=== PATIENT | female | born 2000 | race Two or more races ===

== ENCOUNTER 2024-12-22 03:57 | Emergency (ER) | payer BC, MEDICAID, SELFPAY ==
[2024-12-22 03:58] VITALS: BMI 39.0
[2024-12-22 04:07] VITALS: BP 127/88; PULSE 87; RESP 18; TEMP 36.8; O2SAT 97
--- NOTE | 2024-12-22 04:31 | PD.EDRME ---
Rapid Medical Screening Exam PENDING SALE TO [facility] Arrival date/time: 12/22/24 03:57 24F with history of hypothyroidism presents to ED with 1 week of bilateral flank pain and dysuria. Chief Complaint: Back Pain/Injury Vital signs: Vital Signs Temperature 98.2 F 12/22/24 04:07 Pulse Rate 87 12/22/24 04:07 Respiratory Rate 18 12/22/24 04:07 Blood Pressure 127/88 H 12/22/24 04:07 Pulse Oximetry (%) 97 12/22/24 04:07 Oxygen Delivery Method Room Air 12/22/24 04:07
[2024-12-22 05:31] LABS: Basophils # (Auto) 0.0 Thou/mm3 (0.0-0.2); Basophils % (Auto) 0 % (0-2.5); Eosinophils # (Auto) 0.0 Thou/mm3 (0.0-0.5); Eosinophils % (Auto) 0 % (0-10); Hematocrit 42.6 % (36.0-46.0); Hemoglobin 14.4 g/dL (12.0-16.0); Immature Granulocytes Auto 0.03 Thou/mm3 (0.00-0.00); Lymphocytes # (Auto) 1.9 Thou/mm3 (1.0-4.8); Lymphocytes % (Auto) 16 % (10-50); Mean Corpuscular HGB Conc 33.8 g/dl (31.0-37.0); Mean Corpuscular Hemoglobin 30.2 pg (25.0-35.0); Mean Corpuscular Volume 89 fL (80-100); Monocytes # (Auto) 1.0 Thou/mm3 (0.0-0.8); Monocytes % (Auto) 8 % (0-12); Neutrophils # (Auto) 9.4 Thou/mm3 (1.8-7.7); Neutrophils % (Auto) 75 % (37-80); Nucleated Red Blood Cell # 0.00 Thou/mm3 (0.00-0.00); Nucleated Red Blood Cell % 0 /100 WBC (0); Platelet Count 189 Thou/mm3 (140-440); RDW Standard Deviation 43.7 fL (36.4-46.3); Red Blood Count 4.77 Miln/mm3 (4.00-5.20); White Blood Count 12.4 Thou/mm3 (3.6-11.0)
[2024-12-22 06:10] LABS: Alanine Aminotransferase 14 U/L (10-49); Albumin, Serum 4.7 gm/dL (3.5-5.0); Albumin/Globulin Ratio 1.5 (1.2-2.2); Alkaline Phosphatase 65 U/L (46-116); Anion Gap 11 (7-16); Aspartate Amino Transferase 21 U/L (0-34); BUN/Creatinine Ratio 10 Ratio (12-20); Bilirubin,Total 0.6 mg/dL (0.3-1.2); Blood Urea Nitrogen 8 mg/dL (9-23); Calcium 10.0 mg/dL (8.3-10.6); Calcium (Corrected) 10.0 mg/dL (8.5-10.1); Carbon Dioxide 26.3 mMol/L (20.0-31.0); Chloride 103 mMol/L (98-107); Creatinine (Component) 0.8 mg/dL (0.6-1.3); Estimated Creatinine Clearance 161.1 mL/min (>60); Globulin 3.2 gm/dL (2.3-3.5); Glucose 95 mg/dL (74-106); Osmolality,Calculated 277 (275-295); Potassium 3.9 mMol/L (3.4-5.1); Sodium 140 mMol/L (136-145); Total Protein 7.9 gm/dL (5.7-8.2); eGFR > 60 See Note
[2024-12-22 08:26] LABS: Collection Type, Urine Clean Catch
[2024-12-22 08:58] LABS: Bacteria,Urine 2+; Bilirubin,Urine Negative (Negative); Blood,Urine 3+ (Negative); Color,Urine Drk-Yellow (Lt Yel-Yel); Glucose, Urine Negative (Negative); Ketones,Urine Negative (Negative); Leukocyte Esterase,Urine Positive (Negative); Nitrite,Urine Positive (Negative); PH,Urine 6.5 (5.0-7.0); Protein,Urine Negative (Neg - Trace); RBC,Urine 11 /hpf (0-3); Specific Gravity,Urine 1.005 (1.001-1.035); Squamous Epithelial Cell,Urine 1 /hpf (0-5); Urobilinogen,Urine Negative mg/dL (0.0-1.0); WBC,Urine 10 /hpf (0-5)
[2024-12-22 08:59] LABS: HCG Qualitative,Urine Negative
[2024-12-22 09:00] LABS: Clarity,Urine Hazy (Clear/Hazy); Culture Indicated,Urine Yes
[2024-12-22 09:16] LABS: Amphetamine/Methamp Scrn,U Negative (Negative); Barbiturate Screen,Urine Negative (Negative); Benzodiazepines Screen,Urine Negative (Negative); Benzoylecgonine Screen, Ur Negative (Negative); Fentanyl Screen,Urine Negative (Negative); Opiate Screen,Urine Negative (Negative); THC Screen,Urine Negative (Negative)
--- NOTE | 2024-12-22 10:02 | EDNOTE_ITS ---
<Statement entered by Kellen Garcia MD - 01/07/25 06:24> As co-signing physician, I was present and available for consult prn. I concur with the plan and care as documented by the midlevel provider. ED Back Injury Pain RME/HPI General Chief Complaint: Back Pain/Injury Stated Complaint: bilateral flank/low back pain Time Seen by Provider: 12/22/24 10:02 Arrival date/time: 12/22/24 03:57 This is a 24-year-old female that comes into the emergency room with complaints of lower back pain for the past 3 days. Patient also complains of dysuria. Patient states he also recently started having pain right after she has been urinating as well. Patient was taking [id number] Azo for urinary tract infections. Patient states she had no relief with this. Patient denies past medical history. Patient denies fever, nausea, vomiting, diarrhea. RME / HPI RME / HPI Narrative: 12/22/24 03:57 24F with history of hypothyroidism presents to ED with 1 week of bilateral flank pain and dysuria. Related Data Previous Rx's ?Medication ?Instructions ?Recorded diphenhydramine HCl 25 mg capsule 25 mg PO Q8H PRN all ergic symptoms 11/12/18 (Benadryl) #30 caps ibuprofen 800 mg tablet 800 mg PO Q6H PRN pain #20 t abs 12/22/24 Allergies Allergy/AdvReac Type Severity Reaction Status Date / Time amoxicillin Allergy Unknown Verified 12/22/24 04:03 Review of Systems Review of Systems Systems Reviewed: All systems reviewed, normal except as documented Past Medical History Social History SMOKING STATUS: Never smoker Travel History EBOLA RISK: No ED Exam Narrative Physical exam: VITAL SIGNS: Reviewed. GENERAL APPEARANCE: Alert and interactive, follows commands, no acute distress HEAD AND FACE: Non-traumatic. ENT: PERRL, conjuctiva pink and clear, eyelid no trauma, Mucous membrane moist. NECK: Supple, nontender, no nuchal rigidity. CHEST: No tenderness, no crepitus, no paradoxical movement, no retractions. LUNGS: breathing even and unlabored HEART: Regular rate, cap refill less than 2 seconds ABDOMEN: Soft, nondistended, no guarding, nontender, no rebound NEUROLOGICAL: Gross motor function intact sensory function intact, Appropriate for age. MUSCULOSKELETAL: low back nontender, full range of motion. EXTREMITIES: No redness no swelling no skin breakdown on bilateral foot and leg. Distal neurovascular status intact bilateral foot SKIN: Color pink, dry, no rash, no lacerations, no abrasions, no contusions. Course Quality Measures none Orders Category Date Time Status CBC Stat Lab 12/22/24 05:20 Completed CMP [Comprehensive Metabolic Panel] Stat Lab 12/22/24 05:20 Completed Drug Screen,Urine Stat Lab 12/22/24 08:08 Completed HCG Qualitative,Urine Stat Lab 12/22/24 08:08 Completed Urinalysis, C/S if Indicated Stat Lab 12/22/24 08:08 Completed Urine Culture Stat Lab 12/22/24 08:08 Completed Acetaminophen Tab [Tylenol ES Tab] Med 12/22/24 10:05 Discontinued 1,000 mg PO X1 ONE Ibuprofen Tab [Motrin Tab] Med 12/22/24 10:04 Discontinued 800 mg PO X1 ONE Nitrofurantoin Macro [Macrobid] Med 12/22/24 10:05 Discontinued 100 mg PO X1 ONE Ondansetron Odt [Zofran Odt] Med 12/22/24 10:05 Discontinued 4 mg PO X1 ONE Vital Signs Vital signs: Vital Signs Temperature 98.2 F 12/22/24 04:07 Pulse Rate 87 12/22/24 04:07 Respiratory Rate 18 12/22/24 04:07 Blood Pressure 127/88 H 12/22/24 04:07 Pulse Oximetry (%) 97 12/22/24 04:07 Oxygen Delivery Method Room Air 12/22/24 04:07 Back Pain / Injury MDM Narrative MDM Narrative:: Spoke to patient at length. Patient's urine has blood. It appears that patient has a UTI. Patient reports that she recently on her menstrual cycle. Explained to patient that if symptoms persist despite antibiotics she may need to do a CAT scan for possible kidney stone. Will treat with antibiotics. I told patient that we would send a urine culture today. She will need to follow-up with primary doctor. Patient verbalized understanding and feels comfortable plan of care. Dragon dictation: Although this document has been carefully reviewed, there may still be some phonetic and other typographical errors. These errors are purely grammatical due to imperfections in the software program and should not be construed in any way to compromise the substance of the patient's medical care during this visit. Patient data External records reviewed:: [facility] previous records Clinical information provided by:: patient Social determinants that could affect healthcare access:: none Patient has the following chronic illnesses:: none How is presenting disease/condition affected by chronic disease/condition?: no chronic disease Evaluation data The following diagnostics were reviewed and interpreted by me:: lab results Lab and/or radiology exams considered but not ordered:: none Interpretation Summary: see note Medications / Prescriptions Medications or Prescriptions considered but not ordered:: none Medication administrations:: Medication Administration History Discontinued Medications Acetaminophen (Acetaminophen 500 Mg Tablet) 1,000 mg PO X1 ONE Stop: 12/22/24 10:06 Last Admin: 12/22/24 10:19 Dose: 1,000 mg Documented By: MATT Ibuprofen (Ibuprofen Tab 400 Mg Tablet) 800 mg PO X1 ONE Stop: 12/22/24 10:05 Last Admin: 12/22/24 10:19 Dose: 800 mg Documented By: MATT Nitrofurantoin Macrocrystals (Nitrofurantoin Macro 100 Mg Capsule) 100 mg PO X1 ONE Stop: 12/22/24 10:06 Last Admin: 12/22/24 10:19 Dose: 100 mg Documented By: MATT Ondansetron HCl (Ondansetron Odt 4 Mg Tabrap) 4 mg PO X1 ONE; Protocol Stop: 12/22/24 10:06 Last Admin: 12/22/24 10:18 Dose: 4 mg Documented By: MATT see [facility] Consultations Consultation(s) initiated? (list below): No Diagnosis Differential diagnosis back pain/injury: pyelonephritis and other (uti, kidney stone ) Most likely diagnosis given after review of the tests above:: uti Admission Indicated Admission indicated?: not indicated Admission Request Was there a request for admission?: No Disposition Plan Disposition Plan: Discharge Discharge Attestation Discharge Attestation: The patient and all family members were given an opportunity to ask questions and understood the discharge instructions. Discharge instructions specifically effects, indications for sooner follow up or return to the emergency department, and the expected course of current diagnosis. Patient condition: Stable Discharge Plan Plan Patient Disposition: HOME (Self Care) Patient condition on transfer: Stable Prescriptions/Referrals Prescriptions/Med Rec: New ibuprofen 800 mg tablet 800 mg PO Q6H PRN (Reason: pain) Qty: 20 0RF No Action diphenhydramine HCl [Benadryl] 25 mg capsule 25 mg PO Q8H PRN (Reason: allergic symptoms) Qty: 30 0RF Referrals: No Primary/Family,Physician [Primary Care Provider] - In 1 week Problem List Clinical Impression: Hematuria, UTI (urinary tract infection) Patient/Caregiver Discharge Instructions Discharge Activity: activity as tolerated Education Materials: ED Hematuria, ED CYSTITIS Female Adult Additional Instructions: Follow up with primary provider in 1-2 days. Come back to ED if symptoms change or worsen Print Language: [place] Stand Alone Forms: Stephanie Award Info., Patient Portal Info Letter PA/SCRAP HOIST OPERATOR Supervising Physician PA/SCRAP HOIST OPERATOR Supervising Physician: pam
[2024-12-22] MEDS: ONDANSETRON ODT 4 MG TABRAP PO (10:18)
[2024-12-22] MEDS: IBUPROFEN TAB 400 MG TABLET 800 MG PO (10:19)
[2024-12-22] MEDS: ACETAMINOPHEN 500 MG TABLET 1000 MG PO (10:19)
[2024-12-22] MEDS: NITROFURANTOIN MACRO 100 MG CAPSULE PO (10:19)
== END 2024-12-22 10:26 | disposition home or self-care (01) ==
PROVIDERS: Physician Assistant; Emergency Provider Emergency Medicine
DX: N39.0 Urinary tract infection, site not specified (principal); R31.9 Hematuria, unspecified; E03.9 Hypothyroidism, unspecified
CPT/HCPCS: 36415; 80053; 80307; 81001; 81025; 85025; 87077; 87086; 87186; 99283; Q0162; A9270